=== PATIENT | female | born 1985 | race Caucasian/White ===

== ENCOUNTER 2022-05-06 16:50 | Emergency (ER) | payer SELFPAY ==
[2022-05-06] MEDS ORDERED: HYDROmorphone 1 MG/ML Syringe ONE (17:28)
[2022-05-06] MEDS ORDERED: HYDROmorphone 1 MG/ML Syringe IVPUSH ONE ×2 (17:29→18:31)
[2022-05-06] MEDS ORDERED: Acetaminophen/oxyCODONE 325-5 MG Tab PO ONE (19:13)
[2022-05-06] MEDS ORDERED: Ibuprofen 600 MG Tab PO ONE (19:18)
[2022-05-06] MEDS ORDERED: Ondansetron 4 MG Tab.DIS PO ONE (19:19)
[2022-05-06] MEDS ORDERED: Ondansetron 4 MG/2 ML SDV IVPUSH ONE (19:19)
[2022-05-06] MEDS ORDERED: Ondansetron 4 MG Tab.DIS ONE (19:22)
== END 2022-05-06 19:45 | disposition home or self-care (01) ==
LOC: KA.ED 16:50
DX: S82.851A Displaced trimalleolar fracture of right lower leg, initial encounter for closed fracture (principal); W00.0XXA Fall on same level due to ice and snow, initial encounter
CPT/HCPCS: 29515; 73610-RT; 73700-RT; 96374; 96375; 96376; 99284-25; A9270-GY; J1170; J2405